=== PATIENT | female | born 1965 | race Caucasian/White ===

== ENCOUNTER → 2023-04-08 16:46 | Outpatient (REF) | payer BC, SELFPAY | LOC: WDC 16:46 | PROVIDERS: ATTENDING PHYSICIAN Obstetrics & Gynecology; FAMILY PHYSICIAN Family Medicine | DX: Z12.31 Encounter for screening mammogram for malignant neoplasm of breast (principal); R14.0 Abdominal distension (gaseous) | CPT/HCPCS: 76830; 76856; 77063; 77067 ==

== ENCOUNTER → 2023-04-11 09:00 | Outpatient (REF) | payer BC, SELFPAY | LOC: WDC 09:00 | PROVIDERS: ATTENDING PHYSICIAN Obstetrics & Gynecology; FAMILY PHYSICIAN Family Medicine | DX: R92.8 Other abnormal and inconclusive findings on diagnostic imaging of breast (principal) | CPT/HCPCS: 76642 ==

== ENCOUNTER → 2023-12-21 09:28 | Outpatient (REF) | payer BC, SELFPAY | LOC: RAD 09:28 | PROVIDERS: ATTENDING PHYSICIAN Physician Assistant; FAMILY PHYSICIAN Family Medicine | DX: M84.352A Stress fracture, left femur, initial encounter for fracture (principal) | CPT/HCPCS: 72192 ==

== ENCOUNTER → 2024-04-09 16:56 | Outpatient (REF) | payer BC, SELFPAY | LOC: WDC 16:56 | PROVIDERS: ATTENDING PHYSICIAN Family Medicine | DX: Z12.31 Encounter for screening mammogram for malignant neoplasm of breast (principal) | CPT/HCPCS: 77063; 77067 ==

== ENCOUNTER → 2024-11-24 17:07 | Outpatient (REF) | payer BC, OTHER, SELFPAY | LOC: RAD 17:07 | DX: M25.461 Effusion, right knee (principal); S80.01XA Contusion of right knee, initial encounter | CPT/HCPCS: 73564 ==